=== PATIENT | female | born 1975 | race Caucasian/White ===

== ENCOUNTER → 2024-02-24 08:57 | Outpatient (REF) | payer OTHER, SELFPAY | LOC: WDC 08:57 | PROVIDERS: ATTENDING PHYSICIAN Student in an Organized Health Care Education/Training Program | DX: N63.15 Unspecified lump in the right breast, overlapping quadrants (principal) | CPT/HCPCS: 76642; 77061; 77065 ==

== ENCOUNTER 2025-03-03 09:04 | Emergency (ER) | payer OTHER, SELFPAY ==
[2025-03-03 09:10] VITALS: BP 135/86; BMI 27.9
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
[2025-03-03] MEDS: TYLENOL 1000 MG PO (12:06)
== END 2025-03-03 12:45 | disposition home or self-care (01) ==
LOC: EMR 09:04
PROVIDERS: EMERGENCY PHYSICIAN Emergency Medicine; FAMILY PHYSICIAN Family Medicine
DX: S01.511A Laceration without foreign body of lip, initial encounter (principal); S01.81XA Laceration without foreign body of other part of head, initial encounter; S69.92XA Unspecified injury of left wrist, hand and finger(s), initial encounter; Y93.55 Activity, bike riding; K21.9 Gastro-esophageal reflux disease without esophagitis
CPT/HCPCS: 99284; 12011; 70450; 70486; 72125; 73130; 99282